=== PATIENT | female | born 1995 | race Caucasian/White ===

== ENCOUNTER 2017-10-04 08:22 | Emergency (ER) | payer BC ==
[2017-10-04] MEDS ORDERED: ONDANSETRON ODT 8 MG TAB.RAPDIS PO STA (08:40)
[2017-10-04] MEDS ORDERED: KETOROLAC 30 MG/ML 1 ML VIAL IVP STA (08:40)
--- NOTE | 2017-10-04 08:49 | ED ---
General Adult HPI - General Chief complaint: Abdominal Pain Stated complaint: LL ABDOMINAL PAIN, HEMATURUIA Time Seen by Provider: 10/04/17 08:28 Source: patient, RN notes reviewed Mode of arrival: ambulatory Limitations: no limitations - History of Present Illness Initial comments: Patient is a 22-year-old female with significant past history for kidney stones , who presents emergency room today with chief complaint of hematuria and left- sided flank pain. Patient does admit that she is been treated for urinary tract infection over the last 5 days is been on antibiotics of ciprofloxacin. She states that today she had increased pain when she woke up and left flank area and has noticed some hematuria. Patient states pain similar to kidney stone that she had passed. She denies any other complaints or symptoms started. Patient denies any recent fever, chills, shortness of breath, chest pain, numbness or tingling, dysuria, constipation or diarrhea, headaches or visual changes, or any other complaints. - Related Data Home Medications Medication Instructions Recorded Confirmed Ciprofloxacin HCl [Cipro] 500 mg PO Q12HR 10/04/17 10/04/17 clonazePAM [KlonoPIN] 0.25 - 0.5 mg PO DAILY PRN 10/04/17 10/04/17 Previous Rx's Medication Instructions Recorded Hydrocodone/Acetaminophen [[place] 1 each PO Q6HR PRN #15 tab 10/04/17 5-325] Ibuprofen [Motrin] 600 mg PO Q6HR PRN #40 day 10/04/17 Nitrofurantoin Monohyd/M-Cryst 100 mg PO Q12HR #14 cap 10/04/17 [Macrobid] Tamsulosin [Flomax] 0.4 mg PO DAILY #10 cap 10/04/17 Allergies Allergy/AdvReac Type Severity Reaction Status Date / Time Penicillins Allergy Unknown Verified 10/04/17 09:18 Review of Systems ROS Statement: Those systems with pertinent positive or pertinent negative responses have been documented in the HPI. ROS Other: All systems not noted in ROS Statement are negative. Past Medical History Past Medical History: No Reported History Additional Past Medical History / Comment(s): kidney stones, basal cell carcinoma History of Any Multi-Drug Resistant Organisms: None Reported Past Surgical History: Cholecystectomy Additional Past Surgical History / Comment(s): skin cancer Past Psychological History: No Psychological Hx Reported Smoking Status: Current every day smoker Past Alcohol Use History: Rare Past Drug Use History: None Reported General Exam - General Exam Comments Initial Comments: General: The patient is awake and alert, in no distress, and does not appear acutely ill. Eye: Pupils are equal, round and reactive to light, extra-ocular movements are intact. No nystagmus. There is normal conjunctiva bilaterally. No signs of icterus. Ears, nose, mouth and throat: There are moist mucous membranes and no oral lesions. Neck: The neck is supple, there is no tenderness or JVD. Cardiovascular: There is a regular rate and rhythm. No murmur, rub or gallop is appreciated. Respiratory: Lungs are clear to auscultation, respirations are non-labored, breath sounds are equal. No wheezes, stridor, rales, or rhonchi. Gastrointestinal: Normal. 7. Normal bowel sounds. Soft on palpation. Patient does have tenderness left flank. No rebound tenderness. No guarding. Musculoskeletal: Normal ROM, no tenderness. Strength 5/5. Sensation intact. Pulses equal bilaterally 2+. Neurological: A&O x 3. CN II-XII intact, There are no obvious motor or sensory deficits. Coordination appears grossly intact. Speech is normal. Skin: Skin is warm and dry and no rashes or lesions are noted. Psychiatric: Cooperative, appropriate mood & affect, normal judgment. Limitations: no limitations Course Vital Signs 10/04/17 08:24 Temperature 97.4 F L Pulse Rate 92 Respiratory 20 Rate Blood Pressure 138/68 O2 Sat by Pulse 98 Oximetry Medical Decision Making - Medical Decision Making Case discussed in detail with attending physician Dr. shepherd. Patient reexamined at this time shows no signs of distress resting comfortably. Patient 's labs have been reviewed no elevated white count. No fever here in emergency room. Patient's urinalysis shows 36 white cells. Large amount of blood. Patient's CAT scan reviewed does show a 3 mm stone in the left UPJ. There is some mild hydronephrosis. Patient resting comfortably clinically looking well. No sign of distress at this time. Being discharged home. Currently been on ciprofloxacin. Urine culture was reviewed showing susceptibility to Macrobid. Patient was given 2 g Rocephin here in the ER. Patient will be discharged home advised follow-up urologist: Office later today for follow-up point she's been advised that she should return to emergency room if any symptoms increase or worsen or for any fever. Patient and her mother at bedside state understanding and are in agreement with this plan. - Lab Data Result diagrams: 10/04/17 08:55 10/04/17 08:55 Lab Results 10/04/17 10/04/17 10/04/17 Range/Units 08:55 08:55 08:55 WBC 4.9 (3.8-10.6) k/uL RBC 4.65 (3.80-5.40) m/uL Hgb 14.1 (11.4-16.0) gm/dL Hct 39.5 (34.0-46.0) % MCV 85.0 (80.0-100.0) fL MCH 30.3 (25.0-35.0) pg MCHC 35.6 (31.0-37.0) g/dL RDW 13.4 (11.5-15.5) % Plt Count 241 (150-450) k/uL Neutrophils % 60 % Lymphocytes % 29 % Monocytes % 6 % Eosinophils % 2 % Basophils % 1 % Neutrophils # 2.9 (1.3-7.7) k/uL Lymphocytes # 1.4 (1.0-4.8) k/uL Monocytes # 0.3 (0-1.0) k/uL Eosinophils # 0.1 (0-0.7) k/uL Basophils # 0.0 (0-0.2) k/uL Sodium 140 (137-145) mmol/L Potassium 3.6 (3.5-5.1) mmol/L Chloride 106 (98-107) mmol/L Carbon Dioxide 25 (22-30) mmol/L Anion Gap 9 mmol/L BUN 12 (7-17) mg/dL Creatinine 0.84 (0.52-1.04) mg/dL Est GFR (MDRD) Af Amer >60 (>60 ml/min/1.73 sqM) Est GFR (MDRD) Non-Af >60 (>60 ml/min/1.73 sqM) Glucose 101 H (74-99) mg/dL Calcium 9.6 (8.4-10.2) mg/dL Total Bilirubin 0.9 (0.2-1.3) mg/dL AST 16 (14-36) U/L ALT 30 (9-52) U/L Alkaline Phosphatase 60 (38-126) U/L Total Protein 7.3 (6.3-8.2) g/dL Albumin 4.3 (3.5-5.0) g/dL Amylase 42 (30-110) U/L Lipase 68 (23-300) U/L Urine Color Dark Red Urine Appearance Bloody H (Clear) Urine RBC >182 H (0-5) /hpf Urine WBC 36 H (0-5) /hpf Ur Squamous Epith Cells 10 H (0-4) /hpf Urine Mucus Many H (None) /hpf Urine HCG, Qual (Not Detectd) 10/04/17 Range/Units 08:55 WBC (3.8-10.6) k/uL RBC (3.80-5.40) m/uL Hgb (11.4-16.0) gm/dL Hct (34.0-46.0) % MCV (80.0-100.0) fL MCH (25.0-35.0) pg MCHC (31.0-37.0) g/dL RDW (11.5-15.5) % Plt Count (150-450) k/uL Neutrophils % % Lymphocytes % % Monocytes % % Eosinophils % % Basophils % % Neutrophils # (1.3-7.7) k/uL Lymphocytes # (1.0-4.8) k/uL Monocytes # (0-1.0) k/uL Eosinophils # (0-0.7) k/uL Basophils # (0-0.2) k/uL Sodium (137-145) mmol/L Potassium (3.5-5.1) mmol/L Chloride (98-107) mmol/L Carbon Dioxide (22-30) mmol/L Anion Gap mmol/L BUN (7-17) mg/dL Creatinine (0.52-1.04) mg/dL Est GFR (MDRD) Af Amer (>60 ml/min/1.73 sqM) Est GFR (MDRD) Non-Af (>60 ml/min/1.73 sqM) Glucose (74-99) mg/dL Calcium (8.4-10.2) mg/dL Total Bilirubin (0.2-1.3) mg/dL AST (14-36) U/L ALT (9-52) U/L Alkaline Phosphatase (38-126) U/L Total Protein (6.3-8.2) g/dL Albumin (3.5-5.0) g/dL Amylase (30-110) U/L Lipase (23-300) U/L Urine Color Urine Appearance (Clear) Urine RBC (0-5) /hpf Urine WBC (0-5) /hpf Ur Squamous Epith Cells (0-4) /hpf Urine Mucus (None) /hpf Urine HCG, Qual Not Detected (Not Detectd) Disposition Clinical Impression: Kidney stone, UTI (urinary tract infection) Disposition: HOME SELF-CARE Condition: Good Instructions: Kidney Stones (ED) Additional Instructions: Please use medication as discussed. Please follow-up with urologist/family doctor in the next 2 days of symptoms have not improved. Please return to emergency room if the symptoms increase or worsen or for any other concerns. Prescriptions: Hydrocodone/Acetaminophen [[place] 5-325] 1 each PO Q6HR PRN #15 tab PRN Reason: Pain Ibuprofen [Motrin] 600 mg PO Q6HR PRN #40 day PRN Reason: Pain Nitrofurantoin Monohyd/M-Cryst [Macrobid] 100 mg PO Q12HR #14 cap Tamsulosin [Flomax] 0.4 mg PO DAILY #10 cap Referrals: Misa Tobar III, MD [Primary Care Provider] - 1-2 days Time of Disposition: 10:17
[2017-10-04] MEDS ORDERED: ONDANSETRON 4 MG/2 ML VIAL IVP STA (08:53)
[2017-10-04 09:10] LABS: Basophils % (A) 1 %; CH 31.1; CHCM 36.8; Eosinophils # (A) 0.1 k/uL (0-0.7); Eosinophils % (A) 2 %; HCT 39.5 % (34.0-46.0); HDW 3.23; HGB 14.1 gm/dL (11.4-16.0); Luc % (Auto) 2; Lymphocytes # (A) 1.4 k/uL (1.0-4.8); Lymphocytes % (A) 29 %; MCH 30.3 pg (25.0-35.0); MCHC 35.6 g/dL (31.0-37.0); Monocytes # (A) 0.3 k/uL (0-1.0); Monocytes % (A) 6 %; Neutrophils # (A) 2.9 k/uL (1.3-7.7); Neutrophils % (A) 60 %; RBC 4.65 m/uL (3.80-5.40); RDW 13.4 % (11.5-15.5); WBC 4.9 k/uL (3.8-10.6); WBC (Perox) 4.88
[2017-10-04 09:18] LABS: ALT 30 U/L (9-52); AST 16 U/L (14-36); Alkaline Phosphatase 60 U/L (38-126); Amylase 42 U/L (30-110); Anion Gap 9 mmol/L; Appearance,Urine Bloody (Clear); Blood Urea Nitrogen 12 mg/dL (7-17); Calcium 9.6 mg/dL (8.4-10.2); Carbon Dioxide 25 mmol/L (22-30); Chloride 106 mmol/L (98-107); Glucose 101 mg/dL (74-99); Mucus,Urine Many /hpf; Non-African American GFR(MDRD) >60 (>60 ml/min/1.73 sqM); Particle Count 112460; Potassium 3.6 mmol/L (3.5-5.1); RBC,Urine >182 /hpf (0-5); Sodium 140 mmol/L (137-145); Squamous Epithelial Cell,Urine 10 /hpf (0-4); Total Bilirubin 0.9 mg/dL (0.2-1.3); Total Protein 7.3 g/dL (6.3-8.2); WBC,Urine 36 /hpf (0-5)
[2017-10-04 09:20] LABS: UA Billing (MACRO vs. MICRO) MICRO
[2017-10-04] MEDS ORDERED: HYDROmorphone 1 MG/ML 1 ML SYRINGE IVP STA (09:42)
[2017-10-04] MEDS ORDERED: cefTRIAXone IN SWFI 1,000 MG/10 ML SYRINGE IVP ONE (09:45)
--- NOTE | 2017-10-04 09:46 | XR ---
EXAMINATION TYPE: XR KUB DATE OF EXAM: 10/04/2017 COMPARISON: 06/23/10 HISTORY: Pain TECHNIQUE: Single supine KUB image of the abdomen is obtained FINDINGS: Small bowel demonstrates no evidence for dilatation or air fluid levels. Gas and fecal material is seen in non-distended colon. No convincing evidence for pneumoperitoneum. No unusual calcifications. The lung bases are clear. The osseous structures are intact. IMPRESSION: 1. Overall nonobstructive bowel gas pattern.
[2017-10-04] MEDS ORDERED: HYDROmorphone 0.5 MG/0.5 ML SYRINGE IVP STA (09:51)
--- NOTE | 2017-10-04 09:58 | CT ---
EXAMINATION TYPE: CT abdomen pelvis wo con DATE OF EXAM: 10/04/2017 COMPARISON: NONE HISTORY: Patient complains of left flank pain. Patient has a history of prior right sided reneal sto gricelda. CT DLP: 303.2 mGycm Examination of the solid and hollow viscera is limited given the lack of contrast. FINDINGS: LUNG BASES: No evidence for nodule. No evidence for infiltrate. LIVER/GB: Cholecystectomy clips are noted. No space-occupying hepatic lesion. PANCREAS: No pancreatic mass identified. No inflammatory process seen. SPLEEN: No evidence for splenomegaly. No intrasplenic lesions seen. ADRENALS: No adrenal nodules identified. No evidence for thickening. KIDNEYS: 3 mm calculus left UPJ resulting in mild left-sided hydronephrosis with mild perinephric str anding. Mild left renal edema noted as well could reflect underlying infection. Additional nonobstruc ting 2 mm calculus left kidney. Nonobstructing 2 mm calculus lower pole right kidney. BOWEL: Appendix has a normal appearance. No evidence of bowel obstruction. No inflammatory process. Lymph nodes: No evidence for adenopathy greater than 1 cm. Abdominal aorta: Atheromatous changes seen. No evidence for aneurysm. Genital organs: No significant abnormality. Other: No significant abnormality. IMPRESSION: 3 mm calculus left UPJ resulting in mild left-sided hydronephrosis with mild perinephric stranding. Mild left renal edema noted as well could reflect underlying infection.
[2017-10-04 10:31] VITALS: BP 113/54; PULSE 87; RESP 16; TEMP 97.7
== END 2017-10-04 10:31 | disposition home or self-care (01) ==
LOC: EC 08:22
DX: N13.2 Hydronephrosis with renal and ureteral calculous obstruction (principal); N39.0 Urinary tract infection, site not specified; F17.200 Nicotine dependence, unspecified, uncomplicated; Z85.828 Personal history of other malignant neoplasm of skin; Z90.49 Acquired absence of other specified parts of digestive tract; Z88.0 Allergy status to penicillin
CPT/HCPCS: 36415; 80053; 82150; 83690; 85025; 81001; 81025; 74000; 74176; 99284; 96374; 96375 ×3; J2405; J0696; J1885; J1170

== ENCOUNTER → 2017-12-02 | Outpatient (CLI) | payer MEDICAID ==
[2017-12-02 12:03] LABS: Cholesterol 190 mg/dL (<200); HDL Cholesterol 68 mg/dL (40-60); LDL Cholesterol,Calculated 109 mg/dL (0-99); Triglycerides 63 mg/dL (<150)
== END | disposition home or self-care (01) ==
LOC: LABWHC1 11:09
PROVIDERS: ATTEND Physician Assistant Medical
DX: Z00.00 Encounter for general adult medical examination without abnormal findings (principal)
CPT/HCPCS: 36415; 80061

== ENCOUNTER → 2018-07-01 | Outpatient (CLI) | payer MEDICAID ==
[2018-07-01 12:24] LABS: HCT 39.1 % (34.0-46.0); HGB 13.6 gm/dL (11.4-16.0); MCH 30.2 pg (25.0-35.0); MCHC 34.8 g/dL (31.0-37.0); MCV 86.9 fL (80.0-100.0); Mean Platelet Volume 6.8; Platelet Count 270 k/uL (150-450); RDW 13.7 % (11.5-15.5); WBC 4.7 k/uL (3.8-10.6)
[2018-07-01 13:00] LABS: T4, Free (Free Thyroxine) 1.07 ng/dL (0.78-2.19)
[2018-07-01 16:30] LABS: Vitamin D 25 Hydroxy 19.7 ng/mL (30.0-100.0)
== END | disposition home or self-care (01) ==
LOC: LABWHC1 11:54
PROVIDERS: ATTEND Psychiatry & Neurology Psychiatry
DX: F41.1 Generalized anxiety disorder (principal); E03.9 Hypothyroidism, unspecified
CPT/HCPCS: 36415; 82306; 82607; 84439; 84443; 85027

== ENCOUNTER → 2019-12-27 | Outpatient (CLI) | payer MEDICAID ==
--- NOTE | 2019-12-27 15:14 | XR ---
EXAMINATION TYPE: XR chest 2V DATE OF EXAM: 12/27/2019 COMPARISON: NONE HISTORY: Intermittent cough since October TECHNIQUE: Frontal and lateral views of the chest are obtained. FINDINGS: There is no focal air space opacity, pleural effusion, or pneumothorax seen. The cardiac silhouette size is within normal limits. The osseous structures are intact. IMPRESSION: No acute cardiopulmonary process.
== END | disposition home or self-care (01) ==
LOC: RADXRMAIN 14:09
PROVIDERS: ATTEND Internal Medicine
DX: R05 Cough (principal)
CPT/HCPCS: 71046